=== PATIENT | male | born 1990 | race Caucasian/White ===

== ENCOUNTER 2019-05-01 21:04 | Emergency (ER) | payer MEDICARE, OTHER ==
--- NOTE | 2019-05-01 21:17 | ED Physician Documentation ---
General Adult - HISTORIAN Historian: patient - HPI Stated Complaint: foreign body in rectum Chief Complaint: General Adult Onset: hours Timing: still present Severity: moderate Further Comments: yes (Pt is a 28 yo resident of the [facility] with mental illness who, in anger, put a foreign body, a metal fork into his rectum. Pt has done this before with plastic knives and forks. Pt does not appear to be in distress on presentation.) - ROS CONST: no problems EYES/ENT: none CVS/RESP: none GI/: other (foreign body, metal fork, in rectum) MS/SKIN/LYMPH: none - PAST HX Past History: other (anxiety/depression, seizure d/o, psych d/o) Allergies/Adverse Reactions: Allergies Allergy/AdvReac Type Severity Reaction Status Date / Time No Known Allergies Allergy Verified 05/01/19 21:29 Home Medications: Ambulatory Orders Medication Instructions Recorded Desmopressin Acetate [Ddavp] 0.1 mg PO HS 09/18/12 Divalproex Sodium [Depakote] 1,000 mg PO HS 09/18/12 Olanzapine 5 mg PO HS 09/18/12 Paliperidone Palmitate [Invega 234 mg PO MO 09/18/12 Sustenna] Quetiapine Fumarate 200 mg PO TID 09/18/12 Ranitidine HCl [Acid Control] 150 mg PO HS 09/18/12 Clonazepam 0.25 mg PO BID 10/11/14 Divalproex Sodium [Depakote] 250 mg PO HS 10/11/14 Docusate Sodium [Colace] 200 mg PO D PRN 10/11/14 Glycerin/Min Oil/Polycarbophil 1,250 mg PO TID 10/11/14 [Replens Vaginal Applicator] Hydroxyzine Pamoate [Vistaril] 25 mg PO BID 10/11/14 Loratadine [Claritin] 10 mg PO D 10/11/14 Polyethylene Glycol 3350 [Miralax] 17 gm PO [id number] 10/11/14 - SOCIAL HX Smoking History: non-smoker - FAMILY HX Family History: No - VITAL SIGNS Vital Signs: Vital Signs Temp Pulse Resp BP Pulse Ox 130/84 10/11/14 22:35 - REVIEWED ASSESSMENTS Nursing Assessment Reviewed: Yes Vitals Reviewed: Yes Progress - Progress Progress: Foreign body, metal fork, easily removed from rectum. Tines were exposed. Likely no damage to rectum. General Adult Physical Exam - PHYSICAL EXAM GENERAL APPEARANCE: no distress NECK: normal inspection RESPIRATORY: no resp distress, chest non-tender, breath sounds normal CVS: reg rate & rhythm, heart sounds normal ABDOMEN: soft, no organomegaly, normal bowel sounds RECTAL: other (foreign body, metal fork in rectum) BACK: normal inspection SKIN: warm/dry, normal color EXTREMITIES: non-tender, normal range of motion, no evidence of injury NEURO: motor nml, sensation nml, other (baseline mental status) Discharge Clincal Impression: rectal foreign body Referrals: Primary Doctor,No [Primary Care Provider] - Condition: Good Disposition: 01 HOME, SELF-CARE Decision to Admit: NO Decision Time: 21:44
[2019-05-01 22:04] VITALS: BP 139/95
--- NOTE | 2019-05-02 08:07 | Diagnostic Imaging Report ---
CATHERINE SAUER [facility] [id number] [facility].[address] [id number] Report Submission Date: May 01, 2019 9:33:00 PM CDT Patient Study Name: TANNER HDEZ Date: May 01, 2019 9:07:05 PM CDT Modality Type: DX Gender: M Description: PELVIS AP 1 OR 2 VIEWS : 86 Institution: [facility] Physician: CATHERINE SAUER EXAMINATION: PELVIS AP 1 OR 2 VIEWS HISTORY: foreign body (Hx) / Note time : 05/01/2019 9:27:51 PM User : Cristine Moralez foreign body (DICOM Hx) (DICOM Hx) COMPARISON: None FINDINGS: No acute fracture is identified. The femoral heads appear well-seated within their respective acetabula. The hip joint spaces are preserved. The pubic symphysis is intact. There is a retained metallic fork in the pelvis, likely in the rectum. The blunt end is oriented superiorly. The fork measures 22 cm. IMPRESSION: Fork in pelvis, likely in the rectum. Electronically signed on May 01, 2019 9:33:00 PM CDT by: Jony ABREU
== END 2019-05-01 21:58 | disposition home or self-care (01) ==
LOC: ED 21:04
DX: T18.5XXA Foreign body in anus and rectum, initial encounter (principal)
CPT/HCPCS: 72170; 99281

== ENCOUNTER 2019-07-10 11:30 | Emergency (ER) | payer MEDICARE, OTHER ==
--- NOTE | 2019-07-10 11:46 | ED Physician Documentation ---
General Adult - HISTORIAN Historian: patient, other (caregiver) - HPI Stated Complaint: I'm bored Chief Complaint: General Adult Additional Information: Patient presents to ED from [facility] home, escorted by two adult male caregivers. Patient sat in waiting area for 15 minutes refusing to check in to ER. Once patient was roomed he states he isn't going to say anything. Caregivers reports a 2-3 day history of increasing agitation and threatening language. Caregivers report patient has threatened to kill them, destroying property and disrupting other residents. Patient then begins to talk, reporting he is bored and needs something to do in his room. He has been nail chewing for several days which is something new per the staff. Patient has refused physical examination and any lab draw or other treatment. insulation worker interior surface has been contacted. Patient's mother/father are legal guardians and authorized treatment today. Onset: days ago (3) Timing: worse since Severity: moderate - ROS CONST: no problems EYES/ENT: none CVS/RESP: none GI/: none MS/SKIN/LYMPH: none NEURO/PSYCH: denies: headache - PAST HX Past History: other (MR, multiple psych issues) Other History: none Surgeries/Procedures: none Allergies/Adverse Reactions: Allergies Allergy/AdvReac Type Severity Reaction Status Date / Time No Known Allergies Allergy Verified 07/10/19 11:56 Home Medications: Ambulatory Orders Medication Instructions Recorded Desmopressin Acetate [Ddavp] 0.1 mg PO HS 09/18/12 Divalproex Sodium [Depakote] 3 tab PO HS 09/18/12 Clonazepam 1 mg PO BID 10/11/14 Hydroxyzine Pamoate [Vistaril] 50 mg PO BID 10/11/14 Loratadine [Claritin] 10 mg PO D 10/11/14 Acetaminophen [Tylenol] 2 tab PO Q6 PRN 07/10/19 Bismuth Subsalicylate 1 tab PO Q4 PRN 07/10/19 [Pepto-Bismol] Magnesium Hydroxide [Milk of 30 ml PO DAILY PRN 07/10/19 Magnesia] Ranitidine HCl [Zantac] 1 tab PO HS 07/10/19 Sennosides/Docusate Sodium 2 each PO HS 07/10/19 [Senna-Docusate Sodium Tablet] - SOCIAL HX Smoking History: non-smoker Alcohol Use: none Drug Use: none - FAMILY HX Family History: No - VITAL SIGNS Vital Signs: Vital Signs Temp Pulse Resp BP Pulse Ox 139/95 05/01/19 21:59 - REVIEWED ASSESSMENTS Nursing Assessment Reviewed: Yes Vitals Reviewed: Yes Progress - Progress Progress: 1245 Patient now consents to physical exam and evaluation. 1300 Social working on placement 1500 [facility] Refused. 1855 [facility] patient manager, Shireen Oneil, took patient back to [facility] home. Guardian (Mother) signed patient out AMA - EKG/XRAY/CT Comments: 130[address] elevation ED Results Lab/Radiology - Lab Results Lab Results: UA - Neg for infection. Specific gravity 1.020 UDS - positive for tricyclic antidepressants. All other negative. General Adult Physical Exam - PHYSICAL EXAM GENERAL APPEARANCE: no distress EENT: CHERYL RESPIRATORY: no resp distress, chest non-tender, breath sounds normal CVS: reg rate & rhythm, heart sounds normal ABDOMEN: soft, normal bowel sounds, non-tender BACK: normal inspection, no CVA tenderness SKIN: normal color EXTREMITIES: non-tender, no edema NEURO: oriented X3, other (agitated) Discharge Clincal Impression: Agitation, Homicidal ideation Referrals: Josué Delcid MD [Primary Care Provider] - 2 Days Condition: Stable Disposition: AGAINST MEDICAL ADVICE Decision to Admit: NO Date of Decison to Admit: 07/10/19 Decision Time: 18:56
[2019-07-10 13:00] LABS: BASOPHILS % 0.4 % (0.0-1.5); NEUTROPHILS # 6.1 # k/uL (1.4-7.7)
[2019-07-10 13:19] LABS: eGFR (Non-African) > 60
[2019-07-10 19:00] VITALS: BP 133/93
[2019-07-11 06:15] LABS: APPEARANCE,URINE CLEAR (CLEAR); COLOR,URINE YELLOW (YELLOW); OCCULT BLOOD,URINE NEGATIVE (NEGATIVE)
[2019-07-11 06:16] LABS: PH URINE 8.5 (5.0 - 8.0)
[2019-07-11 06:17] LABS: CANNABINOIDS NEGATIVE ng/mL (< 50); METHYLENEDIOXYMETHAMPHETAMINE NEGATIVE ng/mL (<500)
== END 2019-07-10 18:57 | disposition left against medical advice (07) ==
LOC: ED 11:30
DX: R45.850 Homicidal ideations (principal); R45.1 Restlessness and agitation
CPT/HCPCS: 80053; 80164; 81002; 84443; 85025; 93005; 99282; G0481; 80377